=== PATIENT | female | born 1965 | race Hispanic/Latino ===

== ENCOUNTER 2022-01-06 06:32 | Day surgery (SDC) | payer BC ==
[2022-01-06] MEDS: SODIUM CHLORIDE 0.9% 500 ML 500 ML IV SCH ×2 (07:55→08:29)
[2022-01-06] MEDS ORDERED: HEPARIN 10,000 UNITS/10 ML VIAL ONE (08:05)
[2022-01-06] MEDS ORDERED: HEPARIN/NS 5000 UNIT/500ML 1,000 ML IR ONE (08:05)
[2022-01-06] MEDS: fentaNYL 100 MCG/2 ML INJ ONE ×3 (08:28→08:50)
[2022-01-06] MEDS: MIDAZOLAM 2 MG/2 ML INJ ONE ×2 (08:28→08:36)
[2022-01-06] MEDS: LIDOCAINE (2%) 20 MG/1 ML VIAL 50 ML MDV INFILTRATI ONE ×2 (08:28→08:33)
--- NOTE | 2022-01-06 09:16 | Short Stay Summary ---
Short Stay Documentation Date of service: 01/06/22 - History Principal diagnosis: Retained IVC filter, ileal caval thrombus H&P: obtained from office - Allergies and Medications Current Medications: Allergies egg Allergy (Verified 01/02/22 07:09) Shortness of Breath enoxaparin [From Lovenox] Allergy (Verified 01/02/22 07:28) Rash penicillin G benethamine Allergy (Verified 01/02/22 07:09) Rash Home Medications Medication Instructions Recorded Confirmed Last Taken Type Albuterol Sulfate [Proventil Hfa] 2 puff IH PRN PRN 01/02/22 01/06/22 12/25/21 History 2 puffs Apixaban [Eliquis] 5 mg PO BID 01/02/22 01/06/22 01/06/22 04:30 History Pregabalin [Lyrica] 300 mg PO TID 01/02/22 01/06/22 01/06/22 History 300 mg traMADoL [Ultram 50 MG tab] 2 tab PO BID 01/02/22 01/06/22 01/05/22 History 300 mg Active Medications Sodium Chloride (Nacl 0.9% 500 Ml) 500 mls @ 50 mls/hr IV DIRECT LALIT Stop: 01/06/22 20:00 Last Admin: 01/06/22 08:29 Dose: 50 mls/hr - Brief post op/procedure progress note Date of procedure: 01/06/22 Pre-op diagnosis: Retained IVC filter, ileal caval thrombus Post-op diagnosis: same Procedure: Ultrasound and fluoroscopic guided removal of IVC filter Anesthesia: local Surgeon: BARI CUEVAS Estimated blood loss: minimal Pathology: list (IVC filter) Specimen disposition: other (To pathology) Condition: stable - Disposition Condition at discharge: Good Disposition: 01 HOME / SELF CARE / HOMELESS Short Stay Discharge Plan Activity: advance as tolerated Weight Bearing Status: Weight Bear as Tolerated Diet: regular Wound: keep clean and dry, per your surgeon's advice Follow up with: CHOLO AGUILAR FNP-C [Primary Care Provider] - 7 Days
--- NOTE | 2022-01-06 09:28 | Operative Report ---
Operative Report Operative Report: Exam: IVC venogram, ultrasound and fluoroscopic guided removal of IVC filter Clinical indication: Patient with a history of longstanding indwelling Bard Beadle IVC filter that on initial imaging appears to be partially horizontal within the IVC. Prior diagnostic venogram demonstrates thrombus below the level of the IVC filter involving the IVC and bilateral common iliac and external iliac veins. Date: 01/06/2022 Procedure: Following an explanation of the risks, benefits and alternatives; written informed consent was obtained. The patient was brought to the angiographic suite and placed in supine position on the examination table. Initial ultrasound evaluation of her neck demonstrated a patent right internal jugular vein. The patient's right neck and chest wall were prepped and draped in the usual sterile fashion. 2% lidocaine was used for anesthesia. Under ultrasound guidance, the right internal jugular vein was cannulated with a 7 cm 18-gauge needle. A 0.035 guidewire was advanced distally under fluoroscopy. The needle was exchanged for a 5 Haitian sheath and a vertebral catheter advanced over the guidewire to the level of the filter. Contrast was injected which demonstrates that there is angulation of the filter. A review of prior imaging obtained in our office demonstrates that there appeared to be 5 long limbs and 7 short limbs. The vertebral catheter and 5 Haitian sheath were removed. Following serial dilation, an IVC filter removal sheath and trocar were advanced over the guidewire under fluoroscopy to just proximal to the level of the filter. The gooseneck snare was inserted through the filter removal sheaths and the hook of the IVC filter snared. The sheaths were then advanced over the IVC filter while providing reverse traction to allow encasement of the IVC filter. The IVC filter was then removed intact. Spot images were obtained of the heart, bilateral lungs and upper abdomen in an attempt to determine the location of the approximately 1.2 cm fragment of one of the long limbs that had previously fractured. It was not visualized in the heart, lungs or upper abdomen. Not visualized at the level of the IVC filter placement either. At this point, the catheters, guidewires and sheaths were removed and hemostasis achieved at the right neck using manual compression. A sterile dressing was applied. Conscious sedation was performed under the guidance of radiologic nursing. Continuous cardiopulmonary monitoring was utilized. The patient tolerated the procedure well. There were no immediate postprocedure complications. Impression: 1) Ultrasound and fluoroscopic guided removal of IVC filter. 2) Bard Kristine IVC filter has previously fractured approximately 1.2 cm segment of the longest limb. Fluoroscopic imaging obtained throughout the upper abdomen, chest and heart using spot imaging demonstrates nonvisualization of this fragment. 3) The patient will return in approximately 1 week for recanalization of the IVC, bilateral common iliac veins and bilateral external iliac veins with venoplasty and stent placement.
[2022-01-06 11:03] VITALS: BP 144/108
== END 2022-01-06 11:35 | disposition home or self-care (01) ==
LOC: CATHLABREC 06:32
PROVIDERS: ATTEND Radiology Diagnostic Radiology
DX: Z45.89 Encounter for adjustment and management of other implanted devices (principal); I87.1 Compression of vein; Z88.0 Allergy status to penicillin; Z88.8 Allergy status to other drugs, medicaments and biological substances; Z79.899 Other long term (current) drug therapy; Z86.711 Personal history of pulmonary embolism; Z98.890 Other specified postprocedural states
CPT/HCPCS: 37193; 88300; 99156; 99157; C1769; C1773; J1644; J2250; J3010; J3490; J7040; 88302; Q9967